=== PATIENT | female | born 1980 | race Caucasian/White ===

== ENCOUNTER → 2016-10-10 | Outpatient (CLI) | payer OTHER ==
--- NOTE | 2016-10-10 16:37 | MR ---
EXAMINATION TYPE: MR knee RT wo con DATE OF EXAM: 10/10/2016 4:11 PM COMPARISON: NONE HISTORY: Pain TECHNIQUE: Multiplanar, multisequence imaging of the right knee is performed without IV contrast. FINDINGS: There is a moderate-sized suprapatellar bursal fluid collection. There is prepatellar soft tissue edema. Patellar and quadriceps tendons are intact. There is significant narrowing of the medial and lateral and patellofemoral compartment of the joint spaces. There is grade III chondromalacia involving the articular medial femoral and patellofemoral c artilage. Anterior cruciate, posterior cruciate, medial collateral and lateral collateral ligaments are all int act. Lateral meniscus has a normal appearance. Medial meniscus demonstrates intrasubstance linear signal most compatible with myxoid degeneration wi th no definite intra-articular extension. No evidence of marrow edema or contusion. IMPRESSION: 1. 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 2. No ligamentous or meniscal tear. 3. Moderate-sized suprapatellar bursal fluid collection.
== END | disposition home or self-care (01) ==
LOC: RADMRIMAIN 15:37
PROVIDERS: ATTEND Family Medicine
DX: M17.11 Unilateral primary osteoarthritis, right knee (principal); M94.261 Chondromalacia, right knee

== ENCOUNTER → 2020-08-06 | Outpatient (CLI) | payer BC ==
--- NOTE | 2020-08-09 08:53 | MM ---
Reason for exam: screening (asymptomatic). Baseline mammogram. History: Reductions of both breasts, 2006. Took hormonal contraceptives for 4 years beginning at age 14. Physical Findings: Nurse did not find any significant physical abnormalities on exam. MG Screening Mammo w CAD Bilateral CC and MLO view(s) were taken. The breast tissue is heterogeneously dense. This may lower the sensitivity of mammography. Two nodules upper outer quadrant right breast. Ultrasound recommended. These results were verbally communicated with the patient and result sheet given to the patient on 08/06/20. ASSESSMENT: Incomplete: need additional imaging evaluation, BI-RAD 0 RECOMMENDATION: Ultrasound of the right breast.
--- NOTE | 2020-08-09 08:55 | USB ---
Reason for exam: additional evaluation requested from abnormal screening. History: Reductions of both breasts, 2006. Took hormonal contraceptives for 4 years beginning at age 14. Physical Findings: Breast exam preformed at baseline screening. US Breast Workup Limited RT Right limited breast ultrasound including focal area of concern, retroareolar and axilla demonstrates a 1.8 x 0.4 x 1.0cm oval, cystic lesion at 11 o'clock and a 0.9 x 0.5 x 0.8cm oval, mixed lesion with calcifications at 11 o'clock. Biopsy recommended. These results were verbally communicated with the patient and result sheet given to the patient on 08/06/20. ASSESSMENT: Suspicious, BI-RAD 4 RECOMMENDATION: Ultrasound core biopsy of the right breast. Called Dr. Pérez's office with mammographic findings and has scheduled an appointment for the patient for 08/19/20 at 1:[address] Santana. PRELIMINARY REPORT CALLED AND FAXED TO DR. SANTANA ON 08/09/20.
== END | disposition home or self-care (01) ==
LOC: RADMAMWWP 13:35
PROVIDERS: ATTEND Obstetrics & Gynecology
DX: Z12.31 Encounter for screening mammogram for malignant neoplasm of breast (principal); R92.8 Other abnormal and inconclusive findings on diagnostic imaging of breast
CPT/HCPCS: 77067

== ENCOUNTER → 2020-09-01 | Day surgery (SDC) | payer BC ==
[2020-09-01 07:15] VITALS: RESP 16
[2020-09-01 09:09] VITALS: BP 122/80; PULSE 67; TEMP 98.4
--- NOTE | 2020-09-01 11:25 | USB ---
EXAMINATION TYPE: US biopsy breast VAD RT, MG post biopsy diagnostic mammo RT wo CAD DATE OF EXAM: 09/01/2020 CLINICAL HISTORY: 40-year-old female, R92.8 Abnormal Mammo. TECHNIQUE: Ultrasound guided core biopsy of the 11:00 right breast. COMPARISON: 08/06/2020 FINDINGS: The procedure of ultrasound guided core biopsy was explained to the patient. Benefits, alternatives, and risks were discussed. An informed consent was then obtained. The complex cystic lesion versus cyst cluster at the 11:00 position of the right breast, suspected mammographic correlate, was identified and targeted for biopsy. An adjacent curvilinear duct/cyst is noted which likely corresponds to the larger focal asymmetry on mammogram. The patient was placed in supine positioning for imaging and for the procedure. The overlying skin was prepped and draped in usual sterile fashion. Lidocaine was used as anesthetic into the skin and subcutaneous tissue up to area of concern in the 11:00 right breast. Under ultrasound guidance, a 13-gauge vacuum-assisted mammotome biopsy gun was used to obtain 6 core samples. Following this, a ribbon clip was left in lesion. The patient tolerated the procedure well without any immediate complication. The patient was kept in the radiology department for short stay after the procedure and then discharged home in stable condition. Postbiopsy mammogram shows the clip at/near the mammographic focal asymmetry. IMPRESSION: Successful, uncomplicated ultrasound guided core biopsy of area of concern in the 11:00 right breast, full pathology results to follow. If benign results, six-month follow-up postbiopsy mammogram is recommended. 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 Recommendation Excision of site of papillomatosis. MTDD
== END ==
LOC: RADUSWWP 07:05
PROVIDERS: ATTEND Surgery
DX: N60.11 Diffuse cystic mastopathy of right breast (principal); N60.81 Other benign mammary dysplasias of right breast; N62 Hypertrophy of breast; D24.1 Benign neoplasm of right breast; R92.8 Other abnormal and inconclusive findings on diagnostic imaging of breast
CPT/HCPCS: 88305; 77065; 19083; A4648; J2001

== ENCOUNTER → 2021-09-22 | Outpatient (CLI) | payer BC ==
--- NOTE | 2021-09-23 12:44 | MM ---
Reason for exam: screening (asymptomatic). Last mammogram was performed 1 year and 1 month ago. History: Patient has history of high-risk lesion on a previous biopsy at age 40. High risk US biopsy breast VAD RT of the right breast, September 01, 2020. Reductions of both breasts, 2006. Took hormonal contraceptives for 4 years beginning at age 14. Physical Findings: A clinical breast exam by your physician is recommended on an annual basis and results should be correlated with mammographic findings. MG Screening Mammo w CAD Bilateral CC and MLO view(s) were taken. Prior study comparison: September 01, 2020, right breast MG diagnostic mammo RT wo CAD. August 06, 2020, bilateral MG screening mammo w CAD. There are scattered fibroglandular densities. Previous mammotome biopsy in the right breast. There is chronic nodularity bilaterally. Central posterior right CC asymmetric density is more defined. ASSESSMENT: Incomplete: need additional imaging evaluation, BI-RAD 0 RECOMMENDATION: Special view mammogram of the left breast. (3D) If lesion persists on supplemental views, image directed ultrasound is recommended. [facility] will attempt to contact patient to return for supplemental views and ultrasound if indicated.
== END | disposition home or self-care (01) ==
LOC: RADMAMWWP 16:56
PROVIDERS: ATTEND Obstetrics & Gynecology
DX: Z12.31 Encounter for screening mammogram for malignant neoplasm of breast (principal)
CPT/HCPCS: 77067

== ENCOUNTER → 2021-09-30 | Outpatient (CLI) | payer BC ==
--- NOTE | 2021-10-03 09:50 | MM ---
Reason for exam: additional evaluation requested from abnormal screening. Last mammogram was performed less than 1 month ago. History: Patient has history of high-risk lesion on a previous biopsy at age 40. High risk US biopsy breast VAD RT of the right breast, September 01, 2020. Reductions of both breasts, 2006. Took hormonal contraceptives for 4 years beginning at age 14. Physical Findings: A clinical breast exam by your physician is recommended on an annual basis and results should be correlated with mammographic findings. MG Work Up Mamm w CAD LT Spot compression CC, spot compression MLO, LM, and CCRM view(s) were taken of the left breast. Prior study comparison: September 22, 2021, bilateral MG screening mammo w CAD. August 06, 2020, bilateral MG screening mammo w CAD. There are scattered fibroglandular densities. There is no discrete abnormality including area of concern left middle breast. ASSESSMENT: Probably benign, BI-RAD 3 RECOMMENDATION: Follow-up diagnostic mammogram of the left breast in 6 months.
== END | disposition home or self-care (01) ==
LOC: RADMAMWWP 13:57
PROVIDERS: ATTEND Obstetrics & Gynecology
DX: N64.89 Other specified disorders of breast (principal)
CPT/HCPCS: 77065

== ENCOUNTER → 2023-02-05 | Outpatient (CLI) | payer BC ==
--- NOTE | 2023-02-06 09:01 | MM ---
Reason for Exam: Screening (asymptomatic). Last mammogram was performed 1 year(s) and 5 month(s) ago. Patient History: Menarche at age 10. First Full-Term at age 20. Hormonal Contraceptives for 4 years from age 14 until age 18. 2006, Bilateral Reduction. 09/01/2020, High risk Core Biopsy on the right side. Mother had ovarian cancer, age 50. Last menstrual period: 01/29/2023 Risk Values: Lizzy 5 year model risk: 1.1%. NCI Lifetime model risk: 10.5%. Prior Study Comparison: 09/01/2020 Right Diagnostic Mammogram, [facility]. 09/22/2021 Bilateral Screening Mammogram, [facility]. 09/30/2021 Left Diagnostic Mammogram, [facility]. Tissue Density: There are scattered fibroglandular densities. Findings: Analyzed By CAD. There is no suspicious group of microcalcifications or new suspicious mass in either breast. Overall Assessment: Benign, BI-RAD 2 Management: Screening Mammogram of both breasts in 1 year. . Patient should continue monthly self-breast exams. A clinical breast exam by your physician is recommended on an annual basis. This exam should not preclude additional follow-up of suspicious palpable abnormalities. Note on Lizzy scores and lifetime risk: 1. A Lizzy score greater than 3% is considered moderate risk. If this is the case, consider specialist referral to assess eligibility for a risk reducing agent. 2. If overall lifetime risk for the development of breast cancer is 20% or higher, the patient may qualify for future screening with alternating mammogram and breast MRI. Electronically signed and approved by: Nam Nieves M.D. Radiologis
== END | disposition home or self-care (01) ==
LOC: RADMAMWWP 16:05
PROVIDERS: ATTEND Obstetrics & Gynecology
DX: Z12.31 Encounter for screening mammogram for malignant neoplasm of breast (principal); Z80.41 Family history of malignant neoplasm of ovary
CPT/HCPCS: 77063; 77067

== ENCOUNTER → 2023-02-06 | Outpatient (CLI) | payer BC ==
--- NOTE | 2023-02-06 20:59 | XR ---
EXAMINATION TYPE: XR spine complete AP and Lat DATE OF EXAM: 02/06/2023 3:28 PM INDICATION: Patient age:Female; 42 years old; Reason for study: [id number] LOW BACK PAIN; [facility]. COMPARISON: None TECHNIQUE: 2 views of the thoracic spine in Frontal and lateral projections. FINDINGS: No evidence of acute fracture. There is scattered multilevel disk space narrowing without loss of ve rtebral body height. There is normal alignment of the thoracic vertebral bodies. Scattered osteophyte formation along the anterior and lateral aspects of the vertebral bodies. Neural foramen are patent given limitations of this exam. Spinal canal appears patent. There is at least mild neural foraminal stenosis L5-S1. Disc space narrowing is worse at L5-S1. IMPRESSION: No acute osseous pathology. Mild disc degeneration changes worse in the lower lumbar spine with at least mild L5-S1 neural forami nal stenosis.
== END | disposition home or self-care (01) ==
LOC: RADXRMAIN 15:08
PROVIDERS: ATTEND Family Medicine
DX: M51.36 Other intervertebral disc degeneration, lumbar region (principal); M51.37 Other intervertebral disc degeneration, lumbosacral region; M99.73 Connective tissue and disc stenosis of intervertebral foramina of lumbar region
CPT/HCPCS: 72082

== ENCOUNTER → 2023-04-30 | Outpatient (CLI) | payer BC ==
--- NOTE | 2023-04-30 16:44 | MR ---
EXAMINATION TYPE: MR lumbar spine wo con DATE OF EXAM: 04/30/2023 12:09 PM CLINICAL INDICATION:Female, 42 years old with history of M54.50 low back pain; COMPARISON: None TECHNIQUE: Multi planar, multi sequence imaging was performed utilizing: T1-weighted, T2-weighted, a nd turbo inversion recovery imaging of the lumbar spine. IV Contrast: (None if empty) FINDINGS: Alignment: The lumbar vertebral bodies have preserved heights and alignment. Cord: The conus medullaris and the distal spinal cord appear unremarkable with regards to their signa l intensity and morphology. Bones/Discs: Minimal disc degeneration changes worse at L4 -S1 with disc space narrowing, osteophytes and Modic endplate changes. Multilevel disc desiccation is present. T12-L1: No evidence of significant spinal canal stenosis or neural foraminal stenosis. L1-L2: No evidence of significant spinal canal stenosis or neural foraminal stenosis. L2-L3: No evidence of significant spinal canal stenosis or neural foraminal stenosis. L3-L4: No evidence of significant spinal canal stenosis or neural foraminal stenosis. L4-L5: Disc bulge superimposed central disc protrusion and facet joint arthropathy result in mild spi nal canal and mild bilateral neural foraminal stenosis. L5-S1: The disc is rounded posterior morphology without significant spinal canal stenosis. Facet join t arthropathy with mild bilateral neural foraminal stenosis. No significant spinal canal or neural foraminal stenosis in the remainder of the visualized levels. Other findings: None. IMPRESSION: 1. L4-L5 central protrusion without significant spinal canal or neural foraminal stenosis. No eviden ce of significant spinal canal or neural foraminal stenosis. 2. Mild disc degeneration with associated osteoarthritic changes.
== END | disposition home or self-care (01) ==
LOC: RADMRIMAIN 11:03
PROVIDERS: ATTEND Orthopaedic Surgery
DX: M47.817 Spondylosis without myelopathy or radiculopathy, lumbosacral region (principal); M51.26 Other intervertebral disc displacement, lumbar region; M51.36 Other intervertebral disc degeneration, lumbar region
CPT/HCPCS: 72148

== ENCOUNTER → 2023-06-20 | Outpatient (CLI) | payer BC ==
[2023-06-20 09:24] VITALS: BP 147/72; PULSE 77; RESP 15; TEMP 97.9
--- NOTE | 2023-06-20 14:08 | P.PAINPG ---
PQRS Measure Charge Sheet Comment: HISTORY OF PRESENT ILLNESS: A 42 yr old female as a referral from [facility] presents today w severe and chronic LBP x 1 yr secondary to DDD, spondylosis and facet arthropathy without myelopathy for evaluation. Pt states pain level is provoked at 9/10 in intensity, constant, localized in the lower lumbar spine, predominantly axial, sharp in character without occasional shooting pain. Pain is provoked by inactivity. Pain is alleviated by PT x 6 wks in Jan- Mar 2023, medications (Celebrex, Ibu), topical, manual massage, repositioning and rest. Oswestry axial pain score at 9. PMH: OA PSH: DENIES SH: Negative x3 FH: Non contributory All: See list Meds: See list REVIEW OF ORGAN SYSTEMS: CONSTITUTIONAL: No fevers or chills. No recent weight loss. NEUROLOGICAL: + numbness and tingling along the distal extremities. No seizure disorders or headaches. MUSCULOSKELETAL: + pain PSYCHIATRIC: Denies current depression or suicidal thoughts. Physical Examinations : Constitutional : Cooperative , not in acute distress . Neurologic : Cranial nerve II to XII intact. No focal neurological deficits. Psychiatric : alert & oriented x 3. Matching mood & appropriate affect. Judgment & insight intact. Musculoskeletal : Cervical Spine Motor strength in the deltoid and biceps: Normal right side. Normal Left side Motor strength biceps and the wrist extensors: Normal right side . Normal left side Motor strength in the triceps muscle: Normal right side. Normal left side Deep tendon reflexes: Normal at the biceps. Normal at Brachioradialis. Normal at triceps Vertebral body tenderness to deep palpation over Cervical facet loading test: positive bilaterally Spurling test: positive bilaterally Neck distraction test: positive bilaterally Greer sign: positive bilaterally Lumbar spine Motor strength lower extremities ,thigh and legs 5/5 Right side , 5/5 Left side Deep tendon reflexes : Normal Knee Jerk. Normal Ankle Jerk Vertebral body tenderness over L4 Zelaya Test positive Lumbar facet Loading Test: positive Right / positive Left Range of motion of the lumbar spine Flexion 30 degrees, extension 10 degrees Straight Leg Raise test: Left/ Right positive at 35 degrees Veronique test: positive right / positive left. Severe tenderness over the Sacroiliac joint on the Right / Left sides Gaenslen test: positive bilaterally Seated flexion test: positive bilaterally. Sacral spine : Severe tenderness over the Sacroiliac joint: right side / left side Range of motion: Flexion of the lumbar spine <60 degrees Range of motion: Extension of the lumbar spine <20 degrees Gaenslen's Test positive Veronique test: positive right side / left side Thigh Thrust Test Sacral Thrust Test Imaging: MRI noncontrast of the lumbar spine from 04/30/23 reviewed Assessment/ Plan : Lumbar DDD Recommendation of DUNIA L4-L5 #1. May need a series of injections for optimal pian relief. Risks, benefits of procedure discussed and patient verbalized understanding. Admits to anti- coagulant use or medical history of diabetes. Protocol for discontinuation/ continuation of medications micaela procedure discussed. All questions answered. I have spent greater than 30 minutes on patient care today. Dr Ivy was available by phone for the evaluation of this patient. The time was used to review the medical records including relevant urine studies and Prescription history (MAPs), review of the available imaging, evaluation and examination of the patient, coordination of care with the medical staff and if applicable referring physicians, as well as creation of the medical record Home Medications: Ambulatory Orders No Known Home Medications 08/27/20 Controlled Substance Measures - Controlled Substance Measures Is patient prescribed a controlled substance at discharge?: No
== END ==
LOC: PNWHC3 07:52
PROVIDERS: ATTEND Specialist
DX: M51.36 Other intervertebral disc degeneration, lumbar region (principal); M96.1 Postlaminectomy syndrome, not elsewhere classified
CPT/HCPCS: 99211

== ENCOUNTER 2023-07-05 06:54 | Day surgery (SDC) | payer BC ==
[2023-07-03 09:26] VITALS: BMI 33.0
[~2023-07-05 06:54] MED LIST: LACTATED RINGERS 1,000 ML IV SCH
[2023-07-05 07:25] VITALS: RESP 16; TEMP 97.8
[2023-07-05] MEDS ORDERED: IOPAMIDOL M200 10 ML VIAL ONE (07:37)
[2023-07-05] MEDS ORDERED: methylPREDNISolone ACETATE 40 MG/ML 1 ML VIAL ONE (07:37)
--- NOTE | 2023-07-05 07:42 | P.PCN ---
Date of Procedure: 07/05/23 Description of Procedure: PREOPERATIVE DIAGNOSIS: lumbar radiculopathy POSTOPERATIVE DIAGNOSIS: Lumbar radiculopathy PROCEDURE 1. Lumbar epidural steroid injection under fluoroscopic guidance at the L4-L5 level. 2. Lumbar epidurogram. Imaging: Fluoroscopy was used, images where saved to the medical record ANESTHESIA: Local only EBL: Minimal PROCEDURE INDICATION: The patient with low back pain and radiculitis symptoms unresponsive to conservative treatment. Fluoroscopy was used to optimize visualization of the needle placement and to maximize safety. PROCEDURE DESCRIPTION / TECHNIQUE: The patient was seen and identified in the preoperative area. Risks, benefits, complications including but not limited to infections, bleeding, allergic re action to medications, nerve damage and incomplete pain relief, as well as alternatives to the procedure were discussed with the patient. The patient agreed to proceed with the procedure and signed the consent. IV was started if indicated above, and vital signs were stable. Patient was taken to the OR and time out was completed. The patient was placed in the prone position on procedure table and a pillow was placed under the abdomen to reduce lumbar lordosis. The lumbosacral area was prepped and draped in the usual sterile fashion. Vitals were closely monitored during the procedure. Using anterior-posterior fluoroscopy, the L4-L5 interlaminar space was identified and the skin over this site was marked and then infiltrated with 1% lidocaine subcutaneously. Subsequently, a 20-gauge Tuohy epidural needle was inserted and advanced toward the epidural space using the Loss of resistance technique and guided by AP and lateral fluoroscopy. The correct needle position in the epidural space was verified with the injection of 1 mL of Omnipaque 180 contrast to observe an acceptable epidurogram, after negative aspiration for blood and CSF and in the absence of paresthesias. Again after negative aspiration, a 3 ml mixture containing 40mg of depomedrol and 2 ml of preservative free Normal Saline was injected and a washout of epidurogram was seen. Needle was withdrawn intact, skin was cleansed, and bandages were applied. COMPLICATIONS: None DISPOSITION / PLANS: The patient was placed in a supine position and transferred to the recovery area in a stable condition for observation. There was no evidence of lower extremity motor or sensory deficit after the procedure. Patient was discharged from the recovery room after meeting discharge criteria. Home discharge instructions were given to the patient by the staff. The patient was reexamined prior to discharge. The patient will follow up as directed.
[2023-07-05 08:14] VITALS: BP 127/75; PULSE 72
--- NOTE | 2023-07-05 08:51 | FL ---
EXAMINATION TYPE: FL guided pain mgmt statistic Intraoperative/procedural fluoroscopic services were provided. Total fluoroscopy time is 5 seconds with a total of 1 submitted images to PACS. Please see the operative/procedural note for further details. DAP: [id number] Gycm2
== END 2023-07-05 08:07 | disposition home or self-care (01) ==
LOC: ORPAIN 06:54
PROVIDERS: ATTEND Hospitalist
DX: M54.16 Radiculopathy, lumbar region (principal)
CPT/HCPCS: 81025; 62323; J1030; Q9966

== ENCOUNTER → 2023-07-30 | Outpatient (CLI) | payer BC ==
[2023-07-30 09:13] VITALS: BP 128/68; PULSE 79; RESP 15; TEMP 98.2
--- NOTE | 2023-07-30 14:50 | P.PAINPG ---
Objective - Vital Signs Vital signs: Intake & Output 07/29/23 07/30/23 07/30/23 18:59 06:59 18:59 Weight 104.326 kg PQRS Measure Charge Sheet Comment: HISTORY OF PRESENT ILLNESS: A 42 yr old female presents today w severe and chronic LBP x 1 yr secondary to DDD, spondylosis and facet arthropathy without myelopathy for evaluation s/p DUNIA L4-L5 #1. Pt states she experienced 70 % pain relief x 3 wks s/p procedure. Pt states pain level is provoked at 4/10 in intensity, constant, localized in the lower lumbar spine, predominantly axial, sharp in character without occasional shooting pain. Pain is provoked by inactivity. Pain is alleviated by PT x 6 wks in Jan- Mar 2023, medications, topical, manual massage, repositioning and rest. Oswestry axial pain score at 9. Interventional procedures include DUNIA L4-L5 #1 Medications include Celebrex, Ibu REVIEW OF ORGAN SYSTEMS: CONSTITUTIONAL: No fevers or chills. No recent weight loss. NEUROLOGICAL: + numbness and tingling along the distal extremities. No seizure disorders or headaches. MUSCULOSKELETAL: + pain PSYCHIATRIC: Denies current depression or suicidal thoughts. Physical Examinations : Constitutional : Cooperative , not in acute distress . Neurologic : Cranial nerve II to XII intact. No focal neurological deficits. Psychiatric : alert & oriented x 3. Matching mood & appropriate affect. Judgment & insight intact. Musculoskeletal : Cervical Spine Motor strength in the deltoid and biceps: Normal right side. Normal Left side Motor strength biceps and the wrist extensors: Normal right side . Normal left side Motor strength in the triceps muscle: Normal right side. Normal left side Deep tendon reflexes: Normal at the biceps. Normal at Brachioradialis. Normal at triceps Vertebral body tenderness to deep palpation over Cervical facet loading test: positive bilaterally Spurling test: positive bilaterally Neck distraction test: positive bilaterally Greer sign: positive bilaterally Lumbar spine Motor strength lower extremities ,thigh and legs 5/5 Right side , 5/5 Left side Deep tendon reflexes : Normal Knee Jerk. Normal Ankle Jerk Vertebral body tenderness over L4 Zelaya Test positive Lumbar facet Loading Test: positive Right / positive Left Range of motion of the lumbar spine Flexion 30 degrees, extension 10 degrees Straight Leg Raise test: Left/ Right positive at 35 degrees Veronique test: positive right / positive left. Severe tenderness over the Sacroiliac joint on the Right / Left sides Gaenslen test: positive bilaterally Seated flexion test: positive bilaterally. Sacral spine : Severe tenderness over the Sacroiliac joint: right side / left side Range of motion: Flexion of the lumbar spine <60 degrees Range of motion: Extension of the lumbar spine <20 degrees Gaenslen's Test positive Veronique test: positive right side / left side Thigh Thrust Test Sacral Thrust Test Imaging: MRI noncontrast of the lumbar spine from 04/30/23 reviewed Assessment/ Plan : Lumbar DDD Will manage residual pain and may RTC on an as needed basis. All questions answered. I have spent greater than 30 minutes on patient care today. Dr Ivy was available by phone for the evaluation of this patient. The time was used to review the medical records including relevant urine studies and Prescription history (MAPs), review of the available imaging, evaluation and examination of the patient, coordination of care with the medical staff and if applicable referring physicians, as well as creation of the medical record PQRS Narrative: Hx Alcohol Use (MH) No Home Medications: Ambulatory Orders No Known Home Medications 08/27/20 Controlled Substance Measures - Controlled Substance Measures Is patient prescribed a controlled substance at discharge?: No
== END ==
LOC: PNWHC3 08:05
PROVIDERS: ATTEND Specialist
DX: M51.36 Other intervertebral disc degeneration, lumbar region (principal)
CPT/HCPCS: 99211

== ENCOUNTER → 2024-03-10 | Outpatient (CLI) | payer BC ==
--- NOTE | 2024-03-10 18:47 | MM ---
Reason for Exam: Screening (asymptomatic). Last mammogram was performed 1 year(s) and 1 month(s) ago. Patient History: Menarche at age 10. First Full-Term at age 20. Hormonal Contraceptives for 4 years from age 14 until age 18. 2005, Bilateral Reduction. 09/01/2020, High risk Core Biopsy on the right side. Maternal cousin had breast cancer under age 50. Mother had ovarian cancer, age 50. Risk Values: Lizzy 5 year model risk: 1.2%. NCI Lifetime model risk: 10.4%. Prior Study Comparison: 09/22/2021 Bilateral Screening Mammogram, [facility]. 09/30/2021 Left Diagnostic Mammogram, [facility]. 02/05/2023 Bilateral MG 3D screening mammo w/cad, [facility]. Tissue Density: There are scattered areas of fibroglandular density. Findings: Analyzed By CAD. Microclip right breast from prior biopsy. Chronic nodularity on the right. Postreduction mammoplasty changes on both sides. There is no suspicious group of microcalcifications or new suspicious mass in either breast. Overall Assessment: Benign, BI-RAD 2 Management: Screening Mammogram of both breasts in 1 year. Patient should continue monthly self-breast exams. A clinical breast exam by your physician is recommended on an annual basis. This exam should not preclude additional follow-up of suspicious palpable abnormalities. Note on Lizzy scores and lifetime risk: 1. A Lizzy score greater than 3% is considered moderate risk. If this is the case, consider specialist referral to assess eligibility for a risk reducing agent. 2. If overall lifetime risk for the development of breast cancer is 20% or higher, the patient may qualify for future screening with alternating mammogram and breast MRI. Electronically signed and approved by: Marcus Aleman M.D. Radiologist
== END | disposition home or self-care (01) ==
LOC: RADMAMWWP 07:47
PROVIDERS: ATTEND Obstetrics & Gynecology
DX: Z12.31 Encounter for screening mammogram for malignant neoplasm of breast
CPT/HCPCS: 77063; 77067

== ENCOUNTER → 2024-09-17 | Outpatient (CLI) | payer BC ==
--- NOTE | 2024-09-17 09:07 | US ---
EXAMINATION TYPE: US liver DATE OF EXAM: 09/17/2024 COMPARISON: CT 2012 CLINICAL INDICATION: Female, 44 years old with history of R74.8 ELEVATED LIVER ENZYMES; Elevated live r enzymes. TECHNIQUE: Grayscale and color Doppler imaging of the right upper quadrant. FINDINGS: EXAM MEASUREMENTS: Liver Length: 18.1 cm Gallbladder Wall: 0.2 cm CBD: 0.4 cm, color Doppler imaging was utilized to isolate the common bile duct for measurement. Right Kidney: 12.8 x 5.8 x 5.3 cm CUFF MAKER NOTES: Exam is limited due to gas. Pancreas: Tail was obscured. Liver: Increased echogenicity and attenuation. *Enlarged. There were 3 hypoechoic areas seen in the liver, #1 is adjacent to the gallbladder and has internal vascularity and measures: 2.3 x 2.3 x 2.0 cm. #2: 2.0 x 2.9 x 1.3 cm. #3: 1.8 x 1.6 x 1.2 cm. Gallbladder: Appears anechoic. Evidence for sonographic Blackwood's sign: No CBD: Appears wnl Right Kidney: Slightly enlarged. Hypoechoic area seen at mid: 2.5 x 2.9 x 2.5 cm versus column of Simba. Renal pelvis appears prominent. IMPRESSION: 1. Hypoechoic lesions within the liver as noted above. Further characterization with contrast CT util izing hemangioma protocol recommended. Metastatic disease is not excluded. 2. Hepatomegaly with underlying hepatic steatosis. 3. Mass versus column of Simba right kidney. This can further be evaluated at CT. [facility], , 09/17/2024 9:04 AM
== END | disposition home or self-care (01) ==
LOC: RADUSWWP 07:45
PROVIDERS: ATTEND Family Medicine
DX: K76.0 Fatty (change of) liver, not elsewhere classified (principal); R74.8 Abnormal levels of other serum enzymes; R16.0 Hepatomegaly, not elsewhere classified
CPT/HCPCS: 76705

== ENCOUNTER → 2024-10-01 | Outpatient (CLI) | payer BC ==
[2024-10-01 14:28] LABS: African American GFR (CKD) >90 (>60 ml/min/1.73 sqM); Blood Urea Nitrogen 11 mg/dL (7-17); Non-African American GFR(CKD) >90 (>60 ml/min/1.73 sqM)
--- NOTE | 2024-10-01 16:22 | CT ---
EXAMINATION TYPE: CT abdomen w con DATE OF EXAM: 10/01/2024 COMPARISON: 03/15/2013. CLINICAL INDICATION: Female, 44 years old with history of R93.2 ABNORMAL FINDINGS ON DX IMAGING OF LI DEVENDRA AND; PH[facility], TECHNIQUE: Multiple axial images are obtained through abdomen and pelvis following the uneventful sedation IV co ntrast material. Automated exposure control for dose reduction was used. FINDINGS: The lung bases are clear. The gallbladder is normal without distention, wall thickening, pericholecystic fluid or gallstones. T here is no biliary ductal dilatation. There is a 2.2 cm enhancing mass in the medial segment of the left lobe of the liver adjacent to the gallbladder which retains contrast on the 3 and 10 minute delayed images. There is no central scar. N eoplasm cannot be excluded and MRI of the liver is recommended for further evaluation. There is no fo xander mass or organomegaly involving the pancreas, spleen or adrenal glands. There is no solid renal mass or hydronephrosis and there is homogeneous contrast enhancement of the r enal parenchyma. The caliber the abdominal aorta is normal is no retroperitoneal adenopathy or hemorr mina. The bowel loops are normal in caliber and there is no evidence of dilatation or obstruction. No infla mmatory changes are identified in the bowel wall or mesentery. There is no free intraperitoneal air or fluid. The osseous structures and soft tissues are intact. IMPRESSION: 2.2 cm enhancing mass in the medial segment left lobe liver. Malignancy cannot be excluded and MRI of the liver is recommended for further evaluation. [facility], , 10/01/2024 4:19 PM
== END | disposition home or self-care (01) ==
LOC: RADCTMAIN 07:21
PROVIDERS: ATTEND Family Medicine
DX: R16.0 Hepatomegaly, not elsewhere classified (principal); R93.2 Abnormal findings on diagnostic imaging of liver and biliary tract; N28.89 Other specified disorders of kidney and ureter
CPT/HCPCS: 82565; 84520; 74160; 36415; Q9967

== ENCOUNTER → 2024-10-13 | Outpatient (CLI) | payer BC ==
[2024-10-13 15:59] LABS: % Iron Saturation 24.42 (12.00-45.00); ALT 48 U/L (8-44); AST 46 U/L (13-35); Albumin 4.2 g/dL (3.8-4.9); Albumin/Globulin Ratio 1.83 Ratio (1.60-3.17); Alkaline Phosphatase 58 U/L (41-126); BUN/Creat Ratio 15.86 Ratio (12.00-20.00); Blood Urea Nitrogen 11.1 mg/dL (9.0-27.0); Calcium 9.4 mg/dL (8.7-10.3); Carbon Dioxide 21.9 mmol/L (21.6-31.8); Chloride 106 mmol/L (96-109); Ferritin 69.6 ng/mL (10.0-291.0); Globulin 2.3 g/dL (1.6-3.3); Glucose 129 mg/dL (70-110); Iron 95 UG/DL (50-170); Potassium 4.2 mmol/L (3.5-5.5); Sodium 138 mmol/L (135-145); Total Bilirubin 0.4 mg/dL (0.3-1.2); Total Iron Binding Capacity 389 UG/DL (228-460); Total Protein 6.5 g/dL (6.2-8.2)
[2024-10-13 16:05] LABS: Hepatitis A Antibody IgM Nonreactive (Nonreactive); Hepatitis B Core IgM Nonreactive (Nonreactive); Hepatitis B Surface Antigen Nonreactive (Nonreactive); Hepatitis C IgG Antibody Nonreactive (Nonreactive)
[2024-10-13 16:35] LABS: Ceruloplasmin 23.2 mg/dL (20.0-60.0)
== END | disposition home or self-care (01) ==
LOC: LABWHC1 09:04
PROVIDERS: ATTEND Family Medicine
DX: E11.9 Type 2 diabetes mellitus without complications (principal); R74.8 Abnormal levels of other serum enzymes
CPT/HCPCS: 36415; 80053; 80074; 82043; 82390; 82570; 82728; 83516; 83540; 83550

== ENCOUNTER → 2024-11-19 | Outpatient (CLI) | payer BC ==
--- NOTE | 2024-11-20 07:28 | MR ---
EXAMINATION TYPE: MR liver wo/w con DATE OF EXAM: 11/19/2024 9:30 PM COMPARISON: CT abdomen October 01, 2024 CLINICAL INDICATION: Female, 44 years old with history of R16.0, liver mass, abnormal US/CT IV Contrast: 10 cc Gadobutrol (None if empty) CONTRAST: Standard multiplanar, multisequence MRI departmental protocol images were obtained without contrast a nd with 10 mL intravenous Gadobutrol gadolinium contrast. Imaging performed of the abdomen focusing on the liver. FINDINGS: Liver: Liver remains normal in size. There is diffuse signal drop out in an out of phase images consi stent with fatty infiltrative hepatocellular disease. Corresponding to CT in the anterior inferior ri ght hepatic lobe there is a approximate 2.0 cm lesion and slight T2 hyperintensity and slight T1 hypo intensity near level of the gallbladder fossa. Dynamic postcontrast imaging is suboptimal as first ph ase already has contrast in the portal venous system. There is heterogeneous enhancement identified w hich becomes more isodense on delayed phase images and appears to show persistent rim and central celeste ear enhancement. No biliary dilatation is evident. No additional suspicious masses are seen. Other: Lung bases are clear. The spleen and both adrenal glands are unremarkable. No suspicious renal masses or hydronephrosis. Pancreas is within normal limits. No abnormal bowel dilatation. No AAA. Os seous structures are intact. IMPRESSION: Confirmation of 2.0 cm lesion in the right hepatic lobe. Dynamic MRI imaging characteristics are sugg estive of focal nodular hyperplasia over hepatic adenoma. Consider MRI follow-up in 1 year time to re assess. [facility], , 11/20/2024 7:26 AM
== END | disposition home or self-care (01) ==
LOC: RADMRIMAIN 20:30
PROVIDERS: ATTEND Family Medicine
DX: R16.0 Hepatomegaly, not elsewhere classified (principal); K76.89 Other specified diseases of liver
CPT/HCPCS: 74183; A9585